=== PATIENT | female | born 1975 | race Caucasian/White ===

== ENCOUNTER 2025-03-01 11:27 | Emergency (ER) | payer OTHER ==
[2025-03-01 11:40] VITALS: TEMP 97.9
--- NOTE | 2025-03-01 12:01 | ED ---
General Adult HPI - General Source: patient, RN notes reviewed Mode of arrival: ambulatory Limitations: no limitations <Antonio Lauren - Last Filed: 03/01/25 12:00> <Johnny Solorio - Last Filed: 03/01/25 13:58> - General Chief complaint: Recheck/Abnormal Lab/Rx Stated complaint: abn labs Time Seen by Provider: 03/01/25 11:45 - History of Present Illness Initial comments: Quick note: This is a 49-year-old female presenting at PCPs request for low hemoglobin. Patient endorses recent dizziness, palpitations, SOB, headache and fatigue. States she had her lab work performed both last week and yesterday noting a drop in her hemoglobin from last week's results. States she was sent by Jesica Corado due to drop in hemoglobin. Patient denies known cause for internal bleeding with no use of blood thinners. (Antonio Lauren) 49-year-old female sent over for anemia. She states that she has been dealing with this for several months. She states that her primary care is working on scheduling for evaluation by gastroenterology. She previously states she had some hemorrhoids which would occasionally have minor bleeding. There has been no significant bright red blood per rectum. She denies melena. She currently takes approximately 800 mg of Motrin daily. She denies alcohol use. She denies a known history of gastrointestinal hemorrhage. (Johnny Solorio) - Related Data Allergies Allergy/AdvReac Type Severity Reaction Status Date / Time doxycycline Allergy Rash/Hives Verified 03/01/25 11:41 methylprednisolone Allergy Rash/Hives Verified 03/01/25 11:41 [From Solu-Medrol] morphine Allergy Rash/Hives Verified 03/01/25 11:41 Review of Systems ROS Other: All systems not noted in ROS Statement are negative. <Antonio Lauren - Last Filed: 03/01/25 12:00> ROS Other: All systems not noted in ROS Statement are negative. <Johnny Solorio - Last Filed: 03/01/25 13:58> ROS Statement: Those systems with pertinent positive or pertinent negative responses have been documented in the HPI. Past Medical History Past Medical History: Asthma, COPD History of Any Multi-Drug Resistant Organisms: None Reported Past Surgical History: Bladder Surgery, Hysterectomy, Tubal Ligation Past Psychological History: Bipolar Smoking Status: Current every day smoker Past Alcohol Use History: None Reported Past Drug Use History: None Reported <Antonio Lauren - Last Filed: 03/01/25 12:00> General Exam Limitations: no limitations <Antonio Lauren - Last Filed: 03/01/25 12:00> General appearance: alert, in no apparent distress Head exam: Present: atraumatic, normocephalic Eye exam: Present: normal appearance, PERRL ENT exam: Present: normal exam Neck exam: Present: normal inspection Respiratory exam: Present: normal lung sounds bilaterally. Absent: respiratory distress, wheezes Cardiovascular Exam: Present: regular rate, normal rhythm GI/Abdominal exam: Present: soft. Absent: distended, tenderness Neurological exam: Present: alert, oriented X3, CN II-XII intact. Absent: motor sensory deficit Psychiatric exam: Present: normal affect, normal mood Skin exam: Present: warm, dry, intact <Johnny Solorio - Last Filed: 03/01/25 13:58> - General Exam Comments Initial Comments: Visual Physical Exam Vital signs reviewed General: Well-appearing, nontoxic, no acute distress. Head: Normocephalic, atraumatic Eyes: PERRLA, EOMI ENT: Airway patent Chest: Nonlabored breathing Skin: No visual rash, normal skin tone Neuro: Alert and oriented 3 Musculoskeletal: No gross abnormalities (Antonio Lauren) Course Vital Signs 03/01/25 03/01/25 11:37 13:50 Temperature 97.9 F Pulse Rate 90 89 Respiratory 20 18 Rate Blood Pressure 120/70 135/87 O2 Sat by Pulse 99 98 Oximetry Medical Decision Making <Antonio Lauren - Last Filed: 03/01/25 12:00> - Lab Data Result diagrams: 03/01/25 12:38 03/01/25 12:38 <Johnny Solorio - Last Filed: 03/01/25 13:58> - Medical Decision Making I completed the quick note portion of this chart signed BONITA Leyva (Antonio Lauren) Was pt. sent in by a medical professional or institution (SARA Conway, DIRECTOR ENGINEERING, urgent care, hospital, or custodial...) When possible be specific @ -No Did you speak to anyone other than the patient for history (EMS, parent, family, police, friend...)? What history was obtained from this source @ -No Did you review nursing and triage notes (agree or disagree)? Why? @ -I reviewed and agree with nursing and triage notes Were old charts reviewed (outside hosp., previous admission, EMS record, old EKG, old radiological studies, urgent care reports/EKG's, custodial records)? Report findings @ -No old charts were reviewed Differential GI Bleed: Esophageal varices, aortoenteric fistula, Yesi-Lewis, gastritis, peptic ulcer disease, diverticulosis, inflammatory bowel disease, hemorrhoids, fissure, colitis, malignancy, Meckel's diverticulum, this is not meant to be an all-inclusive list. EKG interpreted by me (3pts min.). @ -Sinus rhythm rate of 76, RI interval 127, QRS duration 82, QTc [address] segment elevation. X-rays interpreted by me (1pt min.). @ -Chest x-ray negative for acute cardiopulmonary findings CT interpreted by me (1pt min.). @ -None done U/S interpreted by me (1pt. min.). @ -None done What testing was considered but not performed or refused? (CT, X-rays, U/S, labs)? Why? @ -None What meds were considered but not given or refused? Why? @ -None Did you discuss the management of the patient with other professionals (professionals i.e. , PA, DIRECTOR ENGINEERING, lab, RT, psych nurse, social welfare clerk, special service officer, teacher, protocol officer, case specialist)? Give summary @ -No Was smoking cessation discussed for >3mins.? @ -No Was critical care preformed (if so, how long)? @ -No Were there social determinants of health that impacted care today? How? (Homelessness, low income, unemployed, alcoholism, drug addiction, transportation, low edu. Level, literacy, decrease access to med. care, detention, rehab)? @ -No Was there de-escalation of care discussed even if they declined (Discuss DNR or withdrawal of care, Hospice)? DNR status @ -No What co-morbidities impacted this encounter? (DM, HTN, Smoking, COPD, CAD, Cancer, CVA, ARF, Chemo, Hep., AIDS, mental health diagnosis, sleep apnea, morbid obesity)? @ -None Was patient admitted / discharged? Hospital course, mention meds given and route, prescriptions, significant lab abnormalities, going to OR and other pert inent info. @49-year-old female with anemia. Patient's hemoglobin is rechecked. Is 8.3. No old for comparison. Patient well-appearing with stable vitals. She will discontinue her Motrin. She will monitor for both dark stool and bright red blood per rectum. She is going to take a daily [id number] iron supplement and she will follow-up with GI. She is given strict return parameters. Undiagnosed new problem with uncertain prognosis? @ -No Drug Therapy requiring intensive monitoring for toxicity (Heparin, Nitro, Insulin, Cardizem)? @ -No Were any procedures done? @ -No Diagnosis/symptom? @Anemia Acute, or Chronic, or Acute on Chronic? @ -Uncertain if this is acute or chronic Uncomplicated (without systemic symptoms) or Complicated (systemic symptoms)? @ -Default Side effects of treatment? @ -No Exacerbation, Progression, or Severe Exacerbation? @ -No Poses a threat to life or bodily function? How? (Chest pain, [place], [place], pneumonia, PE, COPD, DKA, ARF, appy, cholecystitis, CVA, Diverticulitis, Homicidal, Suicidal, threat to staff... and all critical care pts) @ -[Low risk at this time (Johnny Solorio) - Lab Data Lab Results 03/01/25 03/01/25 03/01/25 Range/Units 12:38 12:38 12:38 WBC 10.81 H (4.50-10.00) 10*3/uL RBC 3.59 L (4.10-5.20) 10*6/uL Hgb 8.3 L (12.0-15.0) g/dL Hct 27.1 L (37.2-46.3) % MCV 75.5 L (80.0-97.0) fL MCH 23.1 L (27.0-32.0) pg MCHC 30.6 L (32.0-37.0) g/dL Plt Count 550 H (140-440) 10*3/uL MPV 8.9 L (9.5-12.2) fL Immature Gran % (Auto) 1.0 % Neutrophils % 63.7 % Lymphocytes % 26.5 % Monocytes % 5.4 % Eosinophils % 2.8 % Basophils % 0.6 % Immature Gran # 0.11 H (0.00-0.04) 10*3/uL Neutrophils # 6.90 (1.80-7.70) 10*3/uL Lymphocytes # 2.86 (0.90-5.00) 10*3/uL Monocytes # 0.58 (0.20-1.00) 10*3/uL Eosinophils # 0.30 (0.04-0.35) 10*3/uL Basophils # 0.06 (0.00-0.10) 10*3/uL PT 10.4 (10.0-12.5) sec INR 0.9 (<1.2) APTT 22.5 (22.0-30.0) sec Sodium 139 (137-145) mmol/L Potassium 4.5 (3.5-5.1) mmol/L Chloride 108 H (98-107) mmol/L Carbon Dioxide 25 (22-30) mmol/L Anion Gap 6 mmol/L BUN 16 (7-17) mg/dL Creatinine 0.95 (0.52-1.04) mg/dL Est GFR (CKD-EPI)AfAm 81 (>60 ml/min/1.73 sqM) Est GFR (CKD-EPI)NonAf 70 (>60 ml/min/1.73 sqM) Glucose 68 L (74-99) mg/dL Plasma Lactic Acid Vinny (0.7-2.0) mmol/L Calcium 9.3 (8.4-10.2) mg/dL Total Bilirubin 0.4 (0.2-1.3) mg/dL AST 23 (14-36) U/L ALT 11 (4-34) U/L Alkaline Phosphatase 83 (38-126) U/L Total Protein 7.3 (6.3-8.2) g/dL Albumin 4.2 (3.5-5.0) g/dL 03/01/25 Range/Units 12:38 WBC (4.50-10.00) 10*3/uL RBC (4.10-5.20) 10*6/uL Hgb (12.0-15.0) g/dL Hct (37.2-46.3) % MCV (80.0-97.0) fL MCH (27.0-32.0) pg MCHC (32.0-37.0) g/dL Plt Count (140-440) 10*3/uL MPV (9.5-12.2) fL Immature Gran % (Auto) % Neutrophils % % Lymphocytes % % Monocytes % % Eosinophils % % Basophils % % Immature Gran # (0.00-0.04) 10*3/uL Neutrophils # (1.80-7.70) 10*3/uL Lymphocytes # (0.90-5.00) 10*3/uL Monocytes # (0.20-1.00) 10*3/uL Eosinophils # (0.04-0.35) 10*3/uL Basophils # (0.00-0.10) 10*3/uL PT (10.0-12.5) sec INR (<1.2) APTT (22.0-30.0) sec Sodium (137-145) mmol/L Potassium (3.5-5.1) mmol/L Chloride (98-107) mmol/L Carbon Dioxide (22-30) mmol/L Anion Gap mmol/L BUN (7-17) mg/dL Creatinine (0.52-1.04) mg/dL Est GFR (CKD-EPI)AfAm (>60 ml/min/1.73 sqM) Est GFR (CKD-EPI)NonAf (>60 ml/min/1.73 sqM) Glucose (74-99) mg/dL Plasma Lactic Acid Vinny 0.9 (0.7-2.0) mmol/L Calcium (8.4-10.2) mg/dL Total Bilirubin (0.2-1.3) mg/dL AST (14-36) U/L ALT (4-34) U/L Alkaline Phosphatase (38-126) U/L Total Protein (6.3-8.2) g/dL Albumin (3.5-5.0) g/dL Disposition <Antonio Lauren - Last Filed: 03/01/25 12:00> Is patient prescribed a controlled substance at d/c from ED?: No Time of Disposition: 13:57 <Johnny Solorio - Last Filed: 03/01/25 13:58> Clinical Impression: Anemia Disposition: HOME SELF-CARE Condition: Fair Instructions (If sedation given, give patient instructions): Anemia (ED) Referrals: Tai Rizvi MD [Primary Care Provider] - 1-2 days Arina Chaidez MD [STAFF PHYSICIAN] - 1-2 days
[2025-03-01 13:02] LABS: Basophils # (A) 0.06 10*3/uL (0.00-0.10); Basophils % (A) 0.6 %; Eosinophils % (A) 2.8 %; HCT 27.1 % (37.2-46.3); HGB 8.3 g/dL (12.0-15.0); Lymphocytes # (A) 2.86 10*3/uL (0.90-5.00); Lymphocytes % (A) 26.5 %; MCH 23.1 pg (27.0-32.0); MCHC 30.6 g/dL (32.0-37.0); MCV 75.5 fL (80.0-97.0); Mean Platelet Volume 8.9 fL (9.5-12.2); Monocytes # (A) 0.58 10*3/uL (0.20-1.00); Monocytes % (A) 5.4 %; Neutrophils % (A) 63.7 %; Platelet Count 550 10*3/uL (140-440); RBC 3.59 10*6/uL (4.10-5.20); RDW 17.2 % (11.5-14.5); WBC 10.81 10*3/uL (4.50-10.00)
[2025-03-01 13:12] LABS: INR 0.9 (<1.2); Partial Thromboplastin Time 22.5 sec (22.0-30.0); Prothrombin Time 10.4 sec (10.0-12.5)
[2025-03-01 13:17] LABS: ALT 11 U/L (4-34); AST 23 U/L (14-36); African American GFR (CKD) 81 (>60 ml/min/1.73 sqM); Albumin 4.2 g/dL (3.5-5.0); Alkaline Phosphatase 83 U/L (38-126); Anion Gap 6 mmol/L; Blood Urea Nitrogen 16 mg/dL (7-17); Calcium 9.3 mg/dL (8.4-10.2); Carbon Dioxide 25 mmol/L (22-30); Chloride 108 mmol/L (98-107); Glucose 68 mg/dL (74-99); Non-African American GFR(CKD) 70 (>60 ml/min/1.73 sqM); Potassium 4.5 mmol/L (3.5-5.1); Sodium 139 mmol/L (137-145); Total Bilirubin 0.4 mg/dL (0.2-1.3); Total Protein 7.3 g/dL (6.3-8.2)
--- NOTE | 2025-03-01 13:27 | XR ---
EXAMINATION TYPE: XR chest 2V DATE OF EXAM: 03/01/2025 1:12 PM COMPARISON: None CLINICAL INDICATION: Female, 49 years old with history of Dyspnea, shortness of breath TECHNIQUE: PA and lateral views FINDINGS: Heart normal size. Aorta within normal limits. Mild interstitial prominence. Mild hyperinflation. No consolidation or pleural effusion. There is rounded retrocardiac density. IMPRESSION: 1. Mild interstitial prominence could reflect bronchitis or asthma. Otherwise, no acute cardiopulmona ry process. 2. Possible moderate to large hiatal hernia. Correlate for any associated symptoms. [facility], Workstation: [facility], 03/01/2025 1:25 PM
[2025-03-01 13:50] VITALS: RESP 18
[2025-03-01 14:20] VITALS: BP 123/70; PULSE 87
== END 2025-03-01 14:20 | disposition home or self-care (01) ==
LOC: EC 11:27
DX: D64.9 Anemia, unspecified (principal); F17.200 Nicotine dependence, unspecified, uncomplicated; Z88.5 Allergy status to narcotic agent; Z88.8 Allergy status to other drugs, medicaments and biological substances
CPT/HCPCS: 36415; 71046; 80053; 83605; 85025; 85610; 85730; 93005; 99284